=== PATIENT | male | born 1965 | race Caucasian/White ===

== ENCOUNTER 2017-12-24 09:17 | Day surgery (SDC) | payer OTHER ==
[2017-12-24] MEDS: FAMOTIDINE 20 MG TAB PO (07:00)
[2017-12-24] MEDS: DIAZEPAM 5 MG TAB PO (07:00)
[2017-12-24] MEDS: DIPHENHYDRAMINE 50 MG CAP PO (07:00)
[2017-12-24 09:58] LABS: ADD MAN DIFF? NO
[2017-12-24 10:02] LABS: BASOPHILS % 0.7 % (0.0-2.0); EOSINOPHILS # 0.2 10^3/ul (0.0-0.5); EOSINOPHILS % 3.7 % (0.0-7.0); HEMATOCRIT 44.9 % (42.0-52.0); HEMOGLOBIN 15.7 g/dl (14.0-18.0); LYMPHOCYTES # 1.7 10^3/ul (0.8-2.9); MEAN CORPUSCULAR HEMOGLOBIN 29.4 pg (29.0-33.0); MEAN CORPUSCULAR VOLUME 84.1 fl (82.0-101.0); MEAN PLATELET VOLUME 8.7 fl (7.4-10.4); MONOCYTE # 0.5 10^3/ul (0.3-0.9); MONOCYTES % 9.8 % (0.0-11.0); NEUTROPHIL # 2.2 10^3/ul (1.6-7.5); NEUTROPHILS % 48.6 % (39.0-77.0); PLATELET COUNT 236 10^3/UL (140-415); RED BLOOD COUNT 5.34 10^6/ul (4.70-6.10); RED CELL DISTRIBUTION WIDTH 13.5 % (11.5-14.5)
[2017-12-24 10:02] LABS: WHITE BLOOD COUNT 4.6 10^3/ul (4.8-10.8)
[2017-12-24 10:20] LABS: INR 0.95; PARTIAL THROMBOPLASTIN TIME 29.9 Sec (25.0-35.0); PROTIME 12.8 Sec (11.9-14.9)
[2017-12-24 10:22] LABS: ANION GAP 11 (8-16); BLOOD UREA NITROGEN 18 mg/dl (7-20); CALCIUM 9.1 mg/dl (8.4-10.2); CARBON DIOXIDE 27 mmol/L (21-31); CHLORIDE 107 mmol/L (97-110); CHOL/HDL RATIO 3.7 RATIO; CHOLESTEROL 176 mg/dl (100-200); CREATININE 0.69 mg/dl (0.61-1.24); GLUCOSE 106 mg/dl (70-220); HDL CHOLESTEROL 47 mg/dl (28-71); LDL CHOLESTEROL,CALCULATED 120 mg/dl; POTASSIUM 4.2 mmol/L (3.5-5.1); SODIUM 141 mmol/L (135-144); TRIGLYCERIDES 46 mg/dl (0-149)
[2017-12-24] MEDS ORDERED: SOD CHLORIDE 0.45% 1,000 ML IV (10:30)
[2017-12-24] MEDS ORDERED: HEPARIN 1000 UNITS/ML 10 ML INJ (11:04)
[2017-12-24] MEDS ORDERED: LIDOCAINE 1% (MDV) 20 ML INJ (11:04)
[2017-12-24] MEDS ORDERED: IODIXANOL LOCM 100 ML BTL (11:04)
[2017-12-24] MEDS ORDERED: NITROGLYCERIN (IC) 100 MCG/ML INJ (11:05)
[2017-12-24] MEDS ORDERED: VERAPAMIL 5 MG INJ (11:05)
[2017-12-24] MEDS ORDERED: FENTAnyl 50 MCG/ML VIAL (11:05)
[2017-12-24] MEDS ORDERED: MIDAZOLAM 1 MG/ML 2 ML INJ (11:05)
[2017-12-24] MEDS ORDERED: morphine 2 MG INJ IV (13:00)
[2017-12-24] MEDS ORDERED: ACETAMINOPHEN 325 MG TAB PO (13:00)
[2017-12-24] MEDS ORDERED: ONDANSETRON 4 MG INJ IV (13:00)
[2017-12-24] MEDS ORDERED: AL HYDROX/MG HYDROX/SIMETH 30 ML CUP PO (13:00)
[2017-12-24] MEDS: SOD CHLORIDE 0.9% 1,000 ML IV (13:48)
== END 2017-12-24 17:45 | disposition home or self-care (01) ==
LOC: CCL 09:17 → SDS 09:17 → CCL 17:45
DX: I25.10 Atherosclerotic heart disease of native coronary artery without angina pectoris (principal); I10 Essential (primary) hypertension
CPT/HCPCS: 71045; 80048; 80061; 85025; 85610; 85730; 93005; 93458